=== PATIENT | female | born 1970 | race Caucasian/White ===

== ENCOUNTER 2016-08-30 13:04 | Emergency (ER) | payer MEDICAID ==
[2016-08-30 14:03] LABS: BASOPHILS 0.6 % (0.0-2.0); EOSINOPHILS 2.2 % (0-7); HEMATOCRIT 43.7 % (36.0-48.0); HEMOGLOBIN 14.3 g/dL (12-16); IMMATURE GRANULOCYTES 0.6 % (0-5); MCH 30.6 pg (26.0-34.0); MCHC 32.7 g/dL (31.0-37.0); MCV 93.4 fL (80.0-100.0); MEAN PLATELET VOLUME 10.2 fL (7.4-10.4); MONOCYTES 5.8 % (2-11); NEUTROPHILS 56.8 % (40-80); PLATELET COUNT 346 10x3/uL (130-400); RBC 4.68 10x6/uL (4.00-5.40); RDW 14.4 % (11.5-14.5); WBC 15.4 10x3/uL (4.8-10.8)
[2016-08-30 14:21] LABS: HCG SERUM NEGATIVE (NEGATIVE)
[2016-08-30 14:29] LABS: ALBUMIN 3.5 g/dL (3.4-5.0); ALKALINE PHOSPHATASE 80 U/L (46-116); ALT (SGPT) 44 U/L (10-68); BILIRUBIN - TOTAL 0.16 mg/dL (0.2-1.3); CALC OSMOLALITY 280 mosm/kg (275-300); CALCIUM 8.7 mg/dL (8.5-10.1); CARBON DIOXIDE 28.4 mmol/L (21.0-32.0); CHLORIDE - SERUM 104 mmol/L (98-107); CREATININE - SERUM 0.5 mg/dL (0.6-1.3); GLUCOSE 103 mg/dL (74-106); PROTEIN - SERUM 7.5 g/dL (6.4-8.2); SODIUM 141 mmol/L (136-145); UREA NITROGEN 13 mg/dL (7-18); eGFR NON AFRICAN AMERICAN > 90 mL/min (90-120)
[2016-08-30 14:31] LABS: APPEARANCE CLEAR (CLEAR); BILIRUBIN NEGATIVE (NEGATIVE); COLOR STRAW (YELLOW); GLUCOSE NEGATIVE (NEGATIVE); KETONE NEGATIVE (NEGATIVE); LEUKOCYTE ESTERASE 1+ (NEGATIVE); NITRITE POSITIVE (NEGATIVE); PROTEIN NEGATIVE (NEGATIVE); SPECIFIC GRAVITY 1.005 (1.005-1.020); UROBILINOGEN NORMAL (NORMAL)
[2016-08-30 14:34] LABS: BACTERIA MODERATE /hpf (NONE SEEN); EPITHELIAL CELLS 0-5 /hpf (0-5); MUCUS <1+ /lpf (NONE SEEN); RED CELLS - URINE RARE /hpf (0-5)
== END 2016-08-30 16:39 | disposition home or self-care (01) ==
LOC: D.ER 13:04
PROVIDERS: Emergency Medicine
DX: N10 Acute pyelonephritis (principal); F17.200 Nicotine dependence, unspecified, uncomplicated; M54.12 Radiculopathy, cervical region; C43.9 Malignant melanoma of skin, unspecified

== ENCOUNTER 2016-09-09 03:16 | Emergency (ER) | payer MEDICAID ==
[2016-09-09 04:25] LABS: BASOPHILS 0.6 % (0.0-2.0); EOSINOPHILS 2.2 % (0-7); HEMOGLOBIN 12.9 g/dL (12-16); IMMATURE GRANULOCYTES 0.2 % (0-5); LYMPHOCYTES 45.9 % (15-50); MCH 31.2 pg (26.0-34.0); MCHC 33.9 g/dL (31.0-37.0); MCV 91.8 fL (80.0-100.0); MEAN PLATELET VOLUME 10.9 fL (7.4-10.4); NEUTROPHILS 43.1 % (40-80); PLATELET COUNT 381 10x3/uL (130-400); RBC 4.14 10x6/uL (4.00-5.40); RDW 14.6 % (11.5-14.5); WBC 12.3 10x3/uL (4.8-10.8)
[2016-09-09 04:29] LABS: APPEARANCE HAZY (CLEAR); BILIRUBIN NEGATIVE (NEGATIVE); COLOR YELLOW (YELLOW); GLUCOSE NEGATIVE (NEGATIVE); HCG URINE NEGATIVE (NEGATIVE); KETONE NEGATIVE (NEGATIVE); LEUKOCYTE ESTERASE NEGATIVE (NEGATIVE); NITRITE NEGATIVE (NEGATIVE); PROTEIN NEGATIVE (NEGATIVE); UROBILINOGEN NORMAL (NORMAL)
[2016-09-09 04:34] LABS: UDS - AMPHET NEGATIVE QUAL (NEGATIVE); UDS - BARB NEGATIVE QUAL (NEGATIVE); UDS - BENZO POSITIVE QUAL (NEGATIVE); UDS - COCAINE NEGATIVE QUAL (NEGATIVE); UDS - METH NEGATIVE QUAL (NEGATIVE); UDS - OPIATE NEGATIVE QUAL (NEGATIVE); UDS - PCP NEGATIVE QUAL (NEGATIVE); UDS - THC POSITIVE QUAL (NEGATIVE)
[2016-09-09 04:52] LABS: ALBUMIN 3.2 g/dL (3.4-5.0); ALKALINE PHOSPHATASE 79 U/L (46-116); ALT (SGPT) 58 U/L (10-68); AMYLASE - SERUM 77 U/L (25-115); BILIRUBIN - TOTAL 0.19 mg/dL (0.2-1.3); CALC OSMOLALITY 278 mosm/kg (275-300); CARBON DIOXIDE 27.9 mmol/L (21.0-32.0); CHLORIDE - SERUM 103 mmol/L (98-107); CREATININE - SERUM 0.6 mg/dL (0.6-1.3); GLUCOSE 97 mg/dL (74-106); LIPASE 167 U/L (73-393); POTASSIUM - SERUM 3.9 mmol/L (3.5-5.1); PROTEIN - SERUM 6.8 g/dL (6.4-8.2); SODIUM 140 mmol/L (136-145); UREA NITROGEN 12 mg/dL (7-18); eGFR NON AFRICAN AMERICAN > 90 mL/min (90-120)
== END 2016-09-09 06:22 | disposition home or self-care (01) ==
LOC: D.ER 03:16
PROVIDERS: Family Medicine
DX: K59.00 Constipation, unspecified (principal); R11.0 Nausea

== ENCOUNTER 2016-10-09 23:18 | Emergency (ER) | payer MEDICAID ==
[2016-10-10 00:33] LABS: APPEARANCE CLEAR (CLEAR); COLOR YELLOW (YELLOW)
[2016-10-10 00:34] LABS: BILIRUBIN NEGATIVE (NEGATIVE); EPITHELIAL CELLS RARE /hpf (0-5); GLUCOSE NEGATIVE (NEGATIVE); KETONE NEGATIVE (NEGATIVE); LEUKOCYTE ESTERASE NEGATIVE (NEGATIVE); NITRITE NEGATIVE (NEGATIVE); PROTEIN NEGATIVE (NEGATIVE); UROBILINOGEN NORMAL (NORMAL); WHITE CELLS - URINE NSEEN /hpf (0-5)
== END 2016-10-10 03:15 | disposition home or self-care (01) ==
LOC: D.ER 23:18
PROVIDERS: Family Medicine
DX: M51.36 Other intervertebral disc degeneration, lumbar region (principal); M54.5 Low back pain; C43.9 Malignant melanoma of skin, unspecified

== ENCOUNTER 2016-10-21 21:46 | Emergency (ER) | payer MEDICAID | END 2016-10-22 02:16 | disposition home or self-care (01) | LOC: D.ER 21:46 | DX: S86.912A Strain of unspecified muscle(s) and tendon(s) at lower leg level, left leg, initial encounter (principal); W19.XXXA Unspecified fall, initial encounter; Y93.89 Activity, other specified; Y92.512 Supermarket, store or market as the place of occurrence of the external cause; S79.911A Unspecified injury of right hip, initial encounter; M51.36 Other intervertebral disc degeneration, lumbar region; C43.9 Malignant melanoma of skin, unspecified; F17.200 Nicotine dependence, unspecified, uncomplicated ==

== ENCOUNTER 2017-09-26 01:28 | Emergency (ER) | payer SELFPAY ==
[2017-09-26 01:49] LABS: BASOPHILS 0.5 % (0-2); HEMOGLOBIN 13.9 g/dL (12-16); IMMATURE GRANULOCYTES 0.2 % (0-5); LYMPHOCYTES 34.9 % (15-50); MCH 31.2 pg (26.0-34.0); MCHC 33.1 g/dL (31.0-37.0); MCV 94.4 fL (80.0-100.0); MEAN PLATELET VOLUME 10.1 fL (7.4-10.4); MONOCYTES 7.3 % (2-11); NEUTROPHILS 54.1 % (40-80); PLATELET COUNT 329 10x3/uL (130-400); RBC 4.45 10x6/uL (4.00-5.40); RDW 13.9 % (11.5-14.5); WBC 12.8 10x3/uL (4.8-10.8)
[2017-09-26 01:49] LABS: APPEARANCE CLEAR (CLEAR); BILIRUBIN NEGATIVE (NEGATIVE); COLOR YELLOW (YELLOW); GLUCOSE NEGATIVE (NEGATIVE); KETONE SMALL mg/dL (NEGATIVE); NITRITE NEGATIVE (NEGATIVE); PROTEIN NEGATIVE (NEGATIVE); UROBILINOGEN NORMAL (NORMAL)
[2017-09-26 01:58] LABS: HCG SERUM NEGATIVE (NEGATIVE)
[2017-09-26 02:06] LABS: ALBUMIN 3.1 g/dL (3.4-5.0); ALKALINE PHOSPHATASE 72 U/L (46-116); ALT (SGPT) 9 U/L (10-68); AMYLASE - SERUM 56 U/L (25-115); BILIRUBIN - TOTAL 0.14 mg/dL (0.2-1.3); CALC OSMOLALITY 282 mosm/kg (275-300); CALCIUM 8.8 mg/dL (8.5-10.1); CARBON DIOXIDE 31.5 mmol/L (21.0-32.0); CHLORIDE - SERUM 104 mmol/L (98-107); CREATININE - SERUM 0.6 mg/dL (0.6-1.3); GLUCOSE 144 mg/dL (74-106); LIPASE 104 U/L (73-393); POTASSIUM - SERUM 3.9 mmol/L (3.5-5.1); SODIUM 140 mmol/L (136-145); UREA NITROGEN 14 mg/dL (7-18); eGFR NON AFRICAN AMERICAN > 90 mL/min (90-120)
[2017-09-26 04:00] LABS: UDS - AMPHET POSITIVE QUAL (NEGATIVE); UDS - BARB NEGATIVE QUAL (NEGATIVE); UDS - BENZO NEGATIVE QUAL (NEGATIVE); UDS - COCAINE NEGATIVE QUAL (NEGATIVE); UDS - OPIATE NEGATIVE QUAL (NEGATIVE); UDS - PCP NEGATIVE QUAL (NEGATIVE); UDS - THC POSITIVE QUAL (NEGATIVE)
== END 2017-09-26 05:15 | disposition home or self-care (01) ==
LOC: D.ER 01:28
PROVIDERS: Family Medicine
DX: R10.9 Unspecified abdominal pain (principal); F15.10 Other stimulant abuse, uncomplicated; F12.10 Cannabis abuse, uncomplicated; F17.200 Nicotine dependence, unspecified, uncomplicated

== ENCOUNTER 2018-06-07 22:38 | Emergency (ER) | payer SELFPAY ==
[~2018-06-07] VITALS: Ht 162.6 cm; Wt 59.1 kg
[2018-06-07 22:44] VITALS: Ht 162.6 cm; Wt 59.1 kg
[2018-06-08] MEDS ORDERED: CLEOCIN HCL300 MG PO (00:37)
[2018-06-08 01:01] VITALS: BP 134/84
== END 2018-06-08 01:05 | disposition home or self-care (01) ==
LOC: D.ER 22:38
DX: S40.261A Insect bite (nonvenomous) of right shoulder, initial encounter (principal); W57.XXXA Bitten or stung by nonvenomous insect and other nonvenomous arthropods, initial encounter; Y93.89 Activity, other specified; Y92.89 Other specified places as the place of occurrence of the external cause

== ENCOUNTER 2018-12-07 10:41 | Emergency (ER) | payer MEDICAID ==
[~2018-12-07] VITALS: Ht 162.6 cm; Wt 59.1 kg
[~2018-12-07 10:41] MED LIST: CLEOCIN HCL300 MG PO
[2018-12-07 11:25] VITALS: Ht 162.6 cm; Wt 59.1 kg
[2018-12-07] MEDS ORDERED: ULTRAM50 MG PO (12:16)
[2018-12-07] MEDS ORDERED: NAPROSYN500 MG PO (12:16)
[2018-12-07 12:33] VITALS: BP 121/75
== END 2018-12-07 12:30 | disposition home or self-care (01) ==
LOC: D.ER 10:41
DX: S46.911A Strain of unspecified muscle, fascia and tendon at shoulder and upper arm level, right arm, initial encounter (principal); X58.XXXA Exposure to other specified factors, initial encounter; Y93.89 Activity, other specified; Y92.89 Other specified places as the place of occurrence of the external cause

== ENCOUNTER 2019-06-15 13:39 | Emergency (ER) | payer SELFPAY ==
[~2019-06-15 13:39] MED LIST changes: +NAPROSYN500 MG PO; +ULTRAM50 MG PO
[2019-06-15 13:49] VITALS: BP 143/91; Ht 162.6 cm
[2019-06-15] MEDS ORDERED: IBUPROFEN800 MG PO (14:55)
== END 2019-06-15 15:20 | disposition home or self-care (01) ==
LOC: D.ER 13:39
DX: S96.911A Strain of unspecified muscle and tendon at ankle and foot level, right foot, initial encounter (principal); X58.XXXA Exposure to other specified factors, initial encounter

== ENCOUNTER 2019-11-02 10:28 | Emergency (ER) | payer SELFPAY ==
[~2019-11-02] VITALS: Ht 162.6 cm; Wt 68.2 kg
[~2019-11-02 10:28] MED LIST changes: +IBUPROFEN800 MG PO
[2019-11-02 10:35] VITALS: Ht 162.6 cm; Wt 68.2 kg
[2019-11-02] MEDS ORDERED: NAPROSYN500 MG PO (11:16)
[2019-11-02 11:35] VITALS: BP 122/76
== END 2019-11-02 11:37 | disposition home or self-care (01) ==
LOC: D.ER 10:28
DX: S90.01XA Contusion of right ankle, initial encounter (principal); S90.31XA Contusion of right foot, initial encounter; F17.200 Nicotine dependence, unspecified, uncomplicated; W01.198A Fall on same level from slipping, tripping and stumbling with subsequent striking against other object, initial encounter; Y93.9 Activity, unspecified; Y92.9 Unspecified place or not applicable